=== PATIENT | male | born 1955 | race Caucasian/White ===

== ENCOUNTER 2022-11-08 08:21 | Emergency (ER) | payer MEDICARE, OTHER ==
[2022-11-08] MEDS ORDERED: Fluorescein Opthalmic Strip ONE (08:39)
[2022-11-08] MEDS ORDERED: Proparacaine 0.5% Opth 15 ML BOT ONE (08:39)
== END 2022-11-08 10:21 | disposition home or self-care (01) ==
LOC: ERS 08:21
DX: H33.311 Horseshoe tear of retina without detachment, right eye (principal); E11.9 Type 2 diabetes mellitus without complications; I10 Essential (primary) hypertension; E78.00 Pure hypercholesterolemia, unspecified

== ENCOUNTER 2023-11-19 12:51 | Emergency (ER) | payer MEDICARE ==
[2023-11-19] MEDS ORDERED: Ibuprofen 200 MG TAB ONE (13:15)
== END 2023-11-19 13:54 | disposition home or self-care (01) ==
LOC: ERS 12:51
DX: M25.521 Pain in right elbow (principal); R07.81 Pleurodynia; E11.9 Type 2 diabetes mellitus without complications; E78.5 Hyperlipidemia, unspecified; I10 Essential (primary) hypertension; W06.XXXA Fall from bed, initial encounter; Z55.6 Problems related to health literacy; Z79.84 Long term (current) use of oral hypoglycemic drugs; Z79.82 Long term (current) use of aspirin; Z79.899 Other long term (current) drug therapy